=== PATIENT | female | born 1985 | race Caucasian/White ===

== ENCOUNTER 2018-03-08 18:55 | Outpatient (CLI) | payer MEDICAID ==
[2018-03-08] MEDS: AL HYDROX/MG HYDROX/SIMETH 30 ML CUP PO (20:17)
[2018-03-08 20:44] LABS: ADD UMIC NO; UR ASCORBIC ACID NEGATIVE (NEGATIVE); UR BACTERIA FEW /HPF (NONE SEEN); UR BILIRUBIN (Dip) NEGATIVE (NEGATIVE); UR BLOOD (Dip) NEGATIVE (NEGATIVE); UR CALCIUM OXALATE CRYSTAL FEW /HPF (NONE SEEN); UR CLARITY SLIGHTLY CLOUDY (CLEAR); UR COLOR YELLOW (YELLOW); UR GLUCOSE (Dip) NEGATIVE (NEGATIVE); UR KETONES (Dip) TRACE mg/dL (NEGATIVE); UR LEUKOCYTE ESTERASE (Dip) NEGATIVE Leu/ul (NEGATIVE); UR NITRITE (Dip) NEGATIVE (NEGATIVE); UR RBC 1 /HPF (0-5); UR SPECIFIC GRAVITY (Dip) 1.016 (1.003-1.030); UR SQUAMOUS EPITHELIAL CELL FEW /HPF (FEW); UR TOTAL PROTEIN (Dip) NEGATIVE (NEGATIVE); UR UROBILINOGEN (Dip) NEGATIVE (NEGATIVE); UR WBC 1 /HPF (0-5)
== END 2018-03-08 21:55 | disposition home or self-care (01) ==
LOC: OBT 18:55 → L-D 18:56 → OBT 21:55
DX: O26.892 Other specified pregnancy related conditions, second trimester (principal); Z3A.22 22 weeks gestation of pregnancy; R10.2 Pelvic and perineal pain
CPT/HCPCS: 76705; 76815; 81001; 81003

== ENCOUNTER 2018-06-26 00:56 | Outpatient (CLI) | payer MEDICAID ==
[2018-06-26 04:06] LABS: ADD MAN DIFF? NO
[2018-06-26 04:08] LABS: BASOPHILS % 0.2 % (0.0-2.0); EOSINOPHILS % 0.2 % (0.0-7.0); HEMATOCRIT 33.2 % (37.0-47.0); HEMOGLOBIN 11.1 g/dl (12.0-16.0); LYMPHOCYTES # 1.7 10^3/ul (0.8-2.9); MEAN CORPUSCULAR HEMOGLOBIN 30.1 pg (29.0-33.0); MEAN CORPUSCULAR HGB CONC 33.4 g/dl (32.0-37.0); MEAN PLATELET VOLUME 9.5 fl (7.4-10.4); MONOCYTE # 0.5 10^3/ul (0.3-0.9); MONOCYTES % 4.5 % (0.0-11.0); NEUTROPHIL # 8.1 10^3/ul (1.6-7.5); NEUTROPHILS % 78.7 % (39.0-77.0); PLATELET COUNT 224 10^3/UL (140-415); RED BLOOD COUNT 3.69 10^6/ul (4.20-5.40); RED CELL DISTRIBUTION WIDTH 13.1 % (11.5-14.5)
[2018-06-26 04:08] LABS: WHITE BLOOD COUNT 10.3 10^3/ul (4.8-10.8)
[2018-06-26 04:30] LABS: ANION GAP 8 (5-13); BLOOD UREA NITROGEN 6 mg/dl (7-20); CALCIUM 9.1 mg/dl (8.4-10.2); CARBON DIOXIDE 24 mmol/L (21-31); CHLORIDE 107 mmol/L (97-110); Estimated GFR > 60 mL/min (>60); GLUCOSE 97 mg/dl (70-220); POTASSIUM 4.1 mmol/L (3.5-5.1); SODIUM 139 mmol/L (135-144)
[2018-06-26 04:43] LABS: ADD UMIC YES; UR AMORPHOUS CRYSTAL FEW /HPF (NONE SEEN); UR ASCORBIC ACID NEGATIVE (NEGATIVE); UR BACTERIA FEW /HPF (NONE SEEN); UR BILIRUBIN (Dip) NEGATIVE (NEGATIVE); UR BLOOD (Dip) NEGATIVE (NEGATIVE); UR CLARITY CLOUDY (CLEAR); UR COLOR YELLOW (YELLOW); UR GLUCOSE (Dip) NEGATIVE (NEGATIVE); UR KETONES (Dip) NEGATIVE (NEGATIVE); UR LEUKOCYTE ESTERASE (Dip) NEGATIVE Leu/ul (NEGATIVE); UR NITRITE (Dip) NEGATIVE (NEGATIVE); UR RBC 0 /HPF (0-5); UR SPECIFIC GRAVITY (Dip) 1.011 (1.003-1.030); UR SQUAMOUS EPITHELIAL CELL FEW /HPF (FEW); UR TOTAL PROTEIN (Dip) NEGATIVE (NEGATIVE); UR UROBILINOGEN (Dip) NEGATIVE (NEGATIVE); UR WBC 2 /HPF (0-5)
[2018-06-26] MEDS: LACTATED RINGER'S 1,000 ML IV (06:39)
[2018-06-26] MEDS: MEPERIDINE 50 MG INJ IM (06:53)
[2018-06-26] MEDS: MEPERIDINE 25 MG INJ IV (06:57)
== END 2018-06-26 08:32 | disposition home or self-care (01) ==
LOC: OBT 00:56 → L-D 00:58 → OBT 08:32
DX: O62.9 Abnormality of forces of labor, unspecified (principal); Z3A.37 37 weeks gestation of pregnancy
CPT/HCPCS: 36415; 76818; 80048; 81001; 85025; 96360

== ENCOUNTER 2018-06-28 16:15 | Outpatient (CLI) | payer MEDICAID | END 2018-06-28 18:15 | disposition home or self-care (01) | LOC: OBT 16:15 → L-D 16:15 → OBT 18:15 | DX: O26.893 Other specified pregnancy related conditions, third trimester (principal); R10.9 Unspecified abdominal pain; Z3A.38 38 weeks gestation of pregnancy | CPT/HCPCS: 76816; 76818 ==

== ENCOUNTER 2018-07-08 20:00 | Outpatient (CLI) | payer MEDICAID | END 2018-07-08 22:32 | disposition home or self-care (01) | LOC: OBT 20:00 → L-D 20:00 → OBT 22:32 | DX: O26.843 Uterine size-date discrepancy, third trimester (principal); Z3A.39 39 weeks gestation of pregnancy | CPT/HCPCS: 76815; 76818 ==

== ENCOUNTER 2018-07-15 15:37 | Inpatient (IN) | payer MEDICAID ==
[2018-07-15] MEDS ORDERED: CARBOPROST 250 MCG INJ IM ×2 (16:30→23:30)
[2018-07-15] MEDS ORDERED: OXYTOCIN 30 UNITS/LR 500 ML IV ×8 (16:30→23:30)
[2018-07-15] MEDS ORDERED: MISOPROSTOL 200 MCG TAB PR ×2 (16:30→23:30)
[2018-07-15] MEDS ORDERED: MISOPROSTOL 50 MCG CAPSULE PO ×2 (16:30→18:00)
[2018-07-15] MEDS ORDERED: LIDOCAINE 1% (MPF) 30 ML INJ INJ (16:30)
[2018-07-15] MEDS ORDERED: METHYLERGONOVINE 0.2 MG INJ IM ×2 (16:30→23:30)
[2018-07-15] MEDS: MISOPROSTOL 50 MCG CAPSULE PO ×3 (16:30→21:00)
[2018-07-15 17:08] LABS: ADD MAN DIFF? NO
[2018-07-15 17:41] LABS: INR 0.87; PROTIME 11.9 Sec (11.9-14.9); PT RATIO 0.9
[2018-07-15 17:42] LABS: BASOPHILS % 0.3 % (0.0-2.0); EOSINOPHILS # 0.1 10^3/ul (0.0-0.5); EOSINOPHILS % 0.5 % (0.0-7.0); HEMATOCRIT 36.7 % (37.0-47.0); HEMOGLOBIN 12.1 g/dl (12.0-16.0); LYMPHOCYTES # 2.5 10^3/ul (0.8-2.9); MEAN CORPUSCULAR HEMOGLOBIN 29.4 pg (29.0-33.0); MEAN CORPUSCULAR VOLUME 89.3 fl (82.0-101.0); MEAN PLATELET VOLUME 9.8 fl (7.4-10.4); MONOCYTE # 0.6 10^3/ul (0.3-0.9); MONOCYTES % 5.6 % (0.0-11.0); NEUTROPHIL # 7.6 10^3/ul (1.6-7.5); NEUTROPHILS % 70.2 % (39.0-77.0); PARTIAL THROMBOPLASTIN TIME 26.6 Sec (23.0-35.0); PLATELET COUNT 263 10^3/UL (140-415); RED BLOOD COUNT 4.11 10^6/ul (4.20-5.40); RED CELL DISTRIBUTION WIDTH 13.2 % (11.5-14.5)
[2018-07-15 17:42] LABS: WHITE BLOOD COUNT 10.8 10^3/ul (4.8-10.8)
[2018-07-15 18:09] LABS: HEPATITIS B SURFACE ANTIGEN NEGATIVE (NEGATIVE)
[2018-07-15] MEDS: LACTATED RINGER'S 1,000 ML IV ×3 (19:04→21:18)
[2018-07-15] MEDS: CITRIC ACID/NA CITRATE 30 ML CUP PO (21:14)
[2018-07-15] MEDS: METOCLOPRAMIDE 10 MG INJ IV (21:14)
[2018-07-15] MEDS: FAMOTIDINE 20 MG INJ IV (21:15)
[2018-07-15 21:57] LABS: RAPID PLASMA REAGIN NONREACTIVE (NR)
[2018-07-15] MEDS ORDERED: morphine SULFATE/PF (10 MG/10 ML) INJ (22:07)
[2018-07-15] MEDS: CEFAZOLIN 2 GM/50 ML (PMX) 50 ML IVPB (22:09)
[2018-07-15] MEDS ORDERED: PHENYLephrine (100 MCG/ML) 10ML SYG (22:21)
[2018-07-15] MEDS ORDERED: ONDANSETRON 4 MG INJ (22:22)
[2018-07-15] MEDS ORDERED: DIPHENHYDRAMINE 50 MG INJ IV (22:30)
[2018-07-15] MEDS ORDERED: ONDANSETRON 4 MG INJ IV (22:30)
[2018-07-15] MEDS ORDERED: MEPERIDINE 25 MG INJ IV (22:30)
[2018-07-15] MEDS ORDERED: PROCHLORPERAZINE 10 MG INJ IV (22:30)
[2018-07-15] MEDS ORDERED: HYDROmorphONE 1 MG/5 ML IV SYRINGE IV ×3 (22:30)
[2018-07-15] MEDS ORDERED: FENTAnyl 50 MCG/ML VIAL IV ×3 (22:30)
[2018-07-15] MEDS ORDERED: KETOROLAC 30 MG INJ IV (22:30)
[2018-07-15] MEDS ORDERED: METHYLERGONOVINE 0.2 MG TAB PO (23:30)
[2018-07-15] MEDS ORDERED: LANOLIN HPA 1 PKT TOP (23:30)
[2018-07-16] MEDS ORDERED: KETOROLAC 30 MG INJ IV (01:00)
[2018-07-16] MEDS ORDERED: ZOLPIDEM 5 MG TAB PO (01:00)
[2018-07-16] MEDS ORDERED: HYDROmorphONE 0.5 MG/0.5 ML SYG IV ×2 (01:00)
[2018-07-16] MEDS ORDERED: ONDANSETRON 4 MG INJ IV (01:00)
[2018-07-16] MEDS ORDERED: DIPHENHYDRAMINE 50 MG INJ IV (01:00)
[2018-07-16] MEDS ORDERED: NALOXONE (0.4 MG/ML) INJ IV (01:00)
[2018-07-16] MEDS: LACTATED RINGER'S 1,000 ML IV (02:49)
[2018-07-16] MEDS: OXYTOCIN 30 UNITS/LR 500 ML IV ×2 (05:35→15:34)
[2018-07-16] MEDS: IBUPROFEN 800 MG TAB PO ×3 (06:00→22:00)
[2018-07-16] MEDS: DEXTROSE 5%-LR 1,000 ML IV ×4 (07:28→23:28)
[2018-07-16 07:30] LABS: ADD MAN DIFF? NO
[2018-07-16 07:33] LABS: BASOPHILS % 0.3 % (0.0-2.0); EOSINOPHILS % 0.2 % (0.0-7.0); HEMATOCRIT 29.9 % (37.0-47.0); HEMOGLOBIN 9.9 g/dl (12.0-16.0); LYMPHOCYTES # 2.4 10^3/ul (0.8-2.9); LYMPHOCYTES % 17.6 % (15.0-51.0); MEAN CORPUSCULAR HEMOGLOBIN 29.7 pg (29.0-33.0); MEAN CORPUSCULAR HGB CONC 33.1 g/dl (32.0-37.0); MEAN CORPUSCULAR VOLUME 89.8 fl (82.0-101.0); MEAN PLATELET VOLUME 9.3 fl (7.4-10.4); MONOCYTE # 0.9 10^3/ul (0.3-0.9); MONOCYTES % 6.3 % (0.0-11.0); NEUTROPHIL # 10.2 10^3/ul (1.6-7.5); NEUTROPHILS % 75.2 % (39.0-77.0); PLATELET COUNT 188 10^3/UL (140-415); RED BLOOD COUNT 3.33 10^6/ul (4.20-5.40)
[2018-07-16 07:33] LABS: WHITE BLOOD COUNT 13.5 10^3/ul (4.8-10.8)
[2018-07-16] MEDS: SENNA/DOCUSATE NA (8.6MG/50MG) TAB PO ×2 (08:25→21:24)
[2018-07-16] MEDS: PRENATAL VITAMIN PO (08:25)
[2018-07-16] MEDS ORDERED: HYDROCODONE/APAP (5/325) TAB NGT (11:00)
[2018-07-16] MEDS ORDERED: DIPHTH/TET/ACEL PERTUSS (ADULT) 0.5 ML VIAL IM* (11:00)
[2018-07-16] MEDS: HYDROCODONE/APAP (5/325) TAB GTB ×2 (13:52→22:00)
[2018-07-17] MEDS: OXYTOCIN 30 UNITS/LR 500 ML IV (01:30)
[2018-07-17] MEDS: HYDROCODONE/APAP (5/325) TAB GTB ×3 (06:02→21:26)
[2018-07-17] MEDS: IBUPROFEN 800 MG TAB PO ×3 (06:02→21:25)
[2018-07-17] MEDS: PRENATAL VITAMIN PO (09:57)
[2018-07-17] MEDS: SENNA/DOCUSATE NA (8.6MG/50MG) TAB PO ×2 (09:57→21:25)
[2018-07-18] MEDS: IBUPROFEN 800 MG TAB PO ×2 (05:27→14:00)
[2018-07-18] MEDS: HYDROCODONE/APAP (5/325) TAB GTB ×2 (05:27→14:00)
[2018-07-18] MEDS ORDERED: MEASLES,MUMPS,RUBELLA VACCINE INJ SC* (09:00)
[2018-07-18] MEDS: DIPHTH/TET/ACEL PERTUSS (ADULT) 0.5 ML VIAL IM* (09:00)
[2018-07-18] MEDS: SENNA/DOCUSATE NA (8.6MG/50MG) TAB PO (09:01)
[2018-07-18] MEDS: PRENATAL VITAMIN PO (09:01)
== END 2018-07-18 15:20 | disposition home or self-care (01) | DRG 788 ==
LOC: PP1 07-16 03:10 → L-D 15:37
PROVIDERS: Obstetrics & Gynecology
PROC: 10D00Z1 Extraction of Products of Conception, Low, Open Approach (ICD-10-PCS; principal; 2018-07-15 21:30)
DX: O36.63X0 Maternal care for excessive fetal growth, third trimester, not applicable or unspecified (principal); Z3A.40 40 weeks gestation of pregnancy; Z37.0 Single live birth
CPT/HCPCS: 76815; 85025; 85610; 85730; 86592; 86850; 86900; 86901; 87340; 90715; 99464

== ENCOUNTER 2018-10-05 01:12 | Emergency (ER) | payer MEDICAID ==
[2018-10-05 02:47] LABS: ADD UMIC YES; UR ASCORBIC ACID NEGATIVE (NEGATIVE); UR BILIRUBIN (Dip) 1+ mg/dL (NEGATIVE); UR BLOOD (Dip) 1+ mg/dL (NEGATIVE); UR CLARITY SLIGHTLY CLOUDY (CLEAR); UR COLOR AMBER (YELLOW); UR GLUCOSE (Dip) NEGATIVE (NEGATIVE); UR KETONES (Dip) NEGATIVE (NEGATIVE); UR LEUKOCYTE ESTERASE (Dip) 1+ Leu/ul (NEGATIVE); UR MUCUS FEW /HPF (NONE SEEN); UR NITRITE (Dip) NEGATIVE (NEGATIVE); UR RBC 3 /HPF (0-5); UR SPECIFIC GRAVITY (Dip) 1.028 (1.003-1.030); UR SQUAMOUS EPITHELIAL CELL MODERATE /HPF (FEW); UR TOTAL PROTEIN (Dip) NEGATIVE (NEGATIVE); UR UROBILINOGEN (Dip) 2+ mg/dL (NEGATIVE); UR WBC 12 /HPF (0-5)
[2018-10-05 02:52] LABS: ADD MAN DIFF? NO
[2018-10-05 02:53] LABS: WHITE BLOOD COUNT 9.8 10^3/ul (4.8-10.8)
[2018-10-05 02:53] LABS: BASOPHILS % 0.3 % (0.0-2.0); EOSINOPHILS # 0.1 10^3/ul (0.0-0.5); EOSINOPHILS % 0.6 % (0.0-7.0); HEMATOCRIT 37.6 % (37.0-47.0); HEMOGLOBIN 12.4 g/dl (12.0-16.0); LYMPHOCYTES # 1.7 10^3/ul (0.8-2.9); LYMPHOCYTES % 17.3 % (15.0-51.0); MEAN CORPUSCULAR HEMOGLOBIN 28.2 pg (29.0-33.0); MEAN CORPUSCULAR VOLUME 85.5 fl (82.0-101.0); MEAN PLATELET VOLUME 8.8 fl (7.4-10.4); MONOCYTE # 0.5 10^3/ul (0.3-0.9); MONOCYTES % 4.7 % (0.0-11.0); NEUTROPHIL # 7.5 10^3/ul (1.6-7.5); NEUTROPHILS % 76.9 % (39.0-77.0); PLATELET COUNT 304 10^3/UL (140-415)
[2018-10-05] MEDS: morphine 4 MG/ML VIAL IV (02:55)
[2018-10-05] MEDS: ONDANSETRON 4 MG INJ IV (02:55)
[2018-10-05] MEDS: SOD CHLORIDE 0.9% 500 ML IV (02:56)
[2018-10-05 03:13] LABS: INR 0.93; PROTIME 12.6 Sec (11.9-14.9)
[2018-10-05 03:14] LABS: PARTIAL THROMBOPLASTIN TIME 28.4 Sec (23.0-35.0)
[2018-10-05 03:15] LABS: ALANINE AMINOTRANSFERASE 102 IU/L (13-69); ALBUMIN 4.5 g/dl (3.3-4.9); ALKALINE PHOSPHATASE 92 IU/L (42-121); ANION GAP 13 (5-13); ASPARTATE AMINO TRANSFERASE 120 IU/L (15-46); BILIRUBIN,INDIRECT 1.5 mg/dl (0-1.1); BILIRUBIN,TOTAL 1.5 mg/dl (0.2-1.3); BLOOD UREA NITROGEN 10 mg/dl (7-20); CALCIUM 9.1 mg/dl (8.4-10.2); CARBON DIOXIDE 28 mmol/L (21-31); CHLORIDE 103 mmol/L (97-110); CREATININE 0.41 mg/dl (0.44-1.00); Estimated GFR > 60 mL/min (>60); GLUCOSE 97 mg/dl (70-220); LIPASE 71 U/L (23-300); POTASSIUM 3.9 mmol/L (3.5-5.1); SODIUM 144 mmol/L (135-144); TOTAL PROTEIN 7.7 g/dl (6.1-8.1)
== END 2018-10-05 05:16 | disposition home or self-care (01) ==
LOC: FTE 05:16
DX: K80.20 Calculus of gallbladder without cholecystitis without obstruction (principal)
CPT/HCPCS: 36415; 76705; 80053; 81001; 81025; 83690; 85025; 85610; 85730; 96361; 96374; 96375; 99285-25